=== PATIENT | female | born 1935 | race Caucasian/White ===

== ENCOUNTER 2016-08-06 08:28 | Emergency (ER) | payer MEDICARE ==
[2016-08-06 08:59] VITALS: BP 148/82
--- NOTE | 2016-08-06 09:52 | UC ---
Respiratory Complaint HPI - HPI Summary HPI Summary: The patient comes in today for: 1. Cough, ears "almost ache," frontal headache, "teeth hurting": Onset: 4 days ago. Palliative/provocative: Nothing makes her symptoms better or worse. Quality: Ache. Region: Frontal sinuses. Severity: 5/10 Time: Constant Associated symptoms: Rhinitis: water. Cough: productive of yellow material. FEvers: None. Dyspnea: None. Chest pain: She states that she has chest pressure. * - History of Current Complaint Chief Complaint: UCRespiratory Stated Complaint: URI Time Seen by Provider: 08/06/16 09:46 Hx Obtained From: Patient - Allergies/Home Medications Allergies/Adverse Reactions: Allergies Allergy/AdvReac Type Severity Reaction Status Date / Time Codeine Allergy Severe Nausea And Verified 08/06/16 08:59 Vomiting Home Medications: Home Medications Aspirin [Aspirin Adult Low Strengt] 08/06/16 [History] Brimonidine/Timolol OPTH(NF) [Combigan OPHTH (NF)] 08/06/16 [History] Calcium W/ Vitamins D & K [Calcium + D + K 750-500-40 mg-Unt-Mcg] 08/06/16 [ History] Dorzolamide 2% OPTH (NF) [Trusopt 2% OPTH (NF)] 08/06/16 [History] Latanoprost 0.005% OPTH (NF) [Xalatan 0.005% OPTH*] 08/06/16 [History] Multiple Vitamin [Multi Vitamin] 08/06/16 [History] PMH/Surg Hx/FS Hx/Imm Hx Previously Healthy: No - Glaucoma Endocrine History Of: Denies: Diabetes, Thyroid Disease, Hyperthyroidism, Hypothyroidism, Dyslipidemia Cardiovascular History Of: Denies: Cardiac Disorders, Hypertension, Pacemaker/ICD, Myocardial Infarction , Congestive Heart Failure, Atrial Fibrillation, Deep Vein Thrombosis, Bleeding Disorders Respiratory History Of: Denies: COPD, Asthma, Bronchitis, Pneumonia, Pulmonary Embolism GI/ History Of: Denies: Gastroesophageal Reflux, Ulcer, Gastrointestinal Bleed, Gall Bladder Disease, Kidney Stones, Diverticulitis, Renal Disease, Urosepsis Neurological History Of: Denies: TIA, CVA, Dementia, Seizures, Migraine Psychological History Of: Denies: Anxiety, Depression, Bipolar Disorder, Schizophrenia, Post Traumatic Stress Disorder Cancer History Of: Reports: Breast Cancer Denies: Lung Cancer, Colorectal Cancer, Prostate Cancer, Cervical Cancer Other History Of: Anticoagulant Therapy - Aspirin daily. Negative For: HIV, Hepatitis B, Hepatitis C - Surgical History Surgical History: Yes Surgery Procedure, Year, and Place: hyster, 2 knee replacements, gallbladder, back - Family History Known Family History: Positive: Hypertension Negative: Cardiac Disease - Social History Occupation: Retired Alcohol Use: None Substance Use Type: None Smoking Status (MU): Never Smoked Tobacco Review of Systems Constitutional: Negative Skin: Negative Eyes: Negative ENT: Nasal Discharge Cardiovascular: Chest Pain Gastrointestinal: Negative All Other Systems Reviewed And Are Negative: Yes Physical Exam Triage Information Reviewed: Yes Appearance: Well-Appearing, No Pain Distress, Well-Nourished Vital Signs: Initial Vital Signs Temp 98.5 F 08/06/16 08:52 Pulse 66 08/06/16 08:52 Resp 18 08/06/16 08:52 BP 148/82 08/06/16 08:52 Pulse Ox 97 08/06/16 08:52 Vital Signs Reviewed: Yes Eyes: Positive: Conjunctiva Clear. Negative: Discharge ENT: Positive: Hearing grossly normal. Negative: Pharyngeal erythema, Nasal congestion, Nasal drainage, TM bulging, TM dull, TM red, Tonsillar swelling, Tonsillar exudate Dental: Negative: Gross Decay/Caries @, Dental Fracture @ Neck: Positive: Supple, Nontender, No Lymphadenopathy. Negative: Nuchal Rigidity Respiratory: Positive: Chest non-tender, Lungs clear, No respiratory distress, No accessory muscle use. Negative: Crackles, Wheezing Cardiovascular: Positive: RRR, No Murmur Abdomen Description: Positive: Nontender, No Organomegaly, Soft. Negative: Distended, Guarding Musculoskeletal: Positive: Strength Intact, ROM Intact, No Edema Neurological: Positive: Alert, Muscle Tone Normal Psychological: Positive: Age Appropriate Behavior, Consolable Skin: Negative: rashes, breakdown UC Diagnostic Evaluation - Laboratory O2 Sat by Pulse Oximetry: 97 Respiratory Course/Dx - Course Course Of Treatment: The patient was told that I recommend that she go to the ER for evaluation of her chest pressure, but she did not want to do that. She wanted antibiotics. She was told that she has high blood pressure also. She states that usually it is not as high as it is here today. - Differential Dx/Diagnosis Differential Diagnosis/HQI/PQRI: Bronchitis, Laryngitis, Sinusitis Provider Diagnoses: Upper respiratory infection. Sinusitis. Chest pain. Hypertension Discharge - Discharge Plan Condition: Stable Disposition: AGAINST MEDICAL ADVICE Patient Education Materials: Hypertension (ED), Sinusitis (ED) Referrals: Kamran Tony MD [Primary Care Provider] - As Soon As Possible Additional Instructions: IF you are not going to the ER for evaluation of your chest pressure, please at least reconsider if you get worse. Please see your primary care provider as soon as you can for your blood pressure and chest pressure.
== END 2016-08-06 10:10 | disposition left against medical advice (07) ==
LOC: UCEAST 08:28
DX: J06.9 Acute upper respiratory infection, unspecified (principal); J32.9 Chronic sinusitis, unspecified; R07.89 Other chest pain; I10 Essential (primary) hypertension; Z85.3 Personal history of malignant neoplasm of breast; Z79.82 Long term (current) use of aspirin; Z96.659 Presence of unspecified artificial knee joint; Z90.49 Acquired absence of other specified parts of digestive tract; Z88.5 Allergy status to narcotic agent
CPT/HCPCS: 99212; G0463